=== PATIENT | male | born 1985 | race Caucasian/White ===

== ENCOUNTER 2021-12-30 18:01 | Emergency (ER) | payer MEDICAID, SELFPAY ==
[2021-12-30 18:01] VITALS: BP 130/79; PULSE 83; RESP 18; TEMP 36.3; O2SAT 96; BMI 30.7
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
[2021-12-30] MEDS: Ondansetron 4 MG/2 ML Vial IV (18:28)
[2021-12-30] MEDS: Morphine 4 MG/ML Syringe IV ×2 (18:28→19:58)
[2021-12-30 18:37] LABS: Absolute Neutrophil Count 7.9 X10^3/uL (2.0-7.7); Basophil# 0.03 X10^3/uL; Basophil% 0.3 % (0-1); Eosinophil# 0.01 X10^3/uL; Eosinophils% 0.1 % (0-5); Hematocrit 49.3 % (40-54); Hemoglobin 17.7 g/dL (13.0-16.5); Lymphocyte % 11.5 % (19-41); Mean Corp Hgb Conc 35.9 g/dL (32-36); Mean Corpuscular Hgb 29.9 pg (27.0-32.0); Mean Corpuscular Volume 83.4 fL (80-94); Mean Platelet Vol. 9.5 fl (6.2-12.0); Monocyte# 0.48 X10^3/uL; NRBC Flagged by Analyzer 0 % (0-5); Neutrophil # 7.85 X10^3/uL (2.7-7.7); Neutrophil % 82.2 % (47-70); Platelet Count 202 K/mm3 (150-450); RBC Distribution Width CV 13.2 % (11.6-14.6); Red Blood Count 5.91 M/mm3 (4.6-6.2); White Blood Count 9.6 K/mm3 (4.4-11.0)
[2021-12-30 18:53] LABS: ALB/GLOB Ratio 1.1 RATIO (0.9-2.4); AST(SGOT) 45 U/L (15-37); Alanine Aminotransfer ALT/SGPT 51 U/L (16-61); Albumin, Serum 3.8 g/dL (3.2-5.0); Alkaline Phosphatase 90 U/L (45-117); Anion Gap 4 (5-15); BUN 14 mg/dL (7-18); BUN/Creat Ratio 11.2 RATIO (10-20); Calcium,Total 9.2 mg/dL (8.5-10.1); Chloride 111 mmol/L (98-107); Creatinine, Serum 1.25 mg/dL (0.70-1.30); EST Glomerular Filtration Rate 70 mL/min (>60); Est Glom Filt Rate - Afr Amer 84 mL/min (>60); Globulin 3.5 g/dL (2.2-4.2); Glucose 136 mg/dL (74-106); Potassium 3.7 mmol/L (3.5-5.1); Protein, Total 7.3 g/dL (6.4-8.2); Sodium Level 140 mmol/L (136-145)
[2021-12-30 19:52] LABS: Bacteria 0 SEEN /hpf (None Seen); Mucous, Urine 0 SEEN /hpf (<or=2+); Red Blood Cells-Urine 0 SEEN /hpf (0-5); Squamous Epithelial Cells - UA 0 SEEN /hpf (0-5); White Blood Cells 0 SEEN /hpf (0-5)
[2021-12-30 20:33] LABS: Color, Urine Yellow (Yellow); Glucose, Dipstick Normal (Normal); Ketone-Dipstick 5 mg/dl (Negative); Leukocyte Esterase-Dipstick Negative /ul (Negative); Nitrite-Dipstick Negative (Negative); Occult Blood-Urine Negative /ul (Negative); Protein-Dipstick 15 mg/dl (Negative); Urine Bilirubin Dipstick Negative (Negative); Urine Clarity Clear (Clear); Urine Urobilinogen Normal (Normal)
[2021-12-30] MEDS: HYDROmorphone 1 MG/ML Syringe IV (20:56)
[2021-12-30 20:57] VITALS: PULSE 76; RESP 18; O2SAT 97
[2021-12-30] MEDS: Lidocaine 5% Patch 1 PATCH TOPICAL (21:34)
--- NOTE | 2021-12-30 22:10 | ED.RN ---
Pt attempted to stand up with x2 assist. Multiple attemps by pt to stand. Once pt stood pt became nauseated, diaphoretic and felt like he was going to pass out. Pt unable to take any purposeful steps. x2 assisted back to bed. Dr. Becker updated.
[2021-12-30 23:17] VITALS: BP 115/72; PULSE 81; RESP 16; O2SAT 98
[2021-12-30] MEDS: HYDROmorphone 0.5 MG/0.5 ML SYRINGE IV (23:33)
--- NOTE | 2021-12-30 23:36 | NURSING ---
CALLED PHYSICIANS ETA 2 HRS. ACCEPTED AT [facility]
[2021-12-31 01:00] VITALS: BP 133/78; PULSE 85; RESP 15; O2SAT 99
[2021-12-31] MEDS: Ondansetron 4 MG/2 ML Vial IV (01:25)
[2021-12-31] MEDS: HYDROmorphone 1 MG/ML Syringe IV (01:26)
[2021-12-31 02:03] VITALS: BP 124/78; PULSE 81; RESP 16; O2SAT 95
== END 2021-12-31 02:15 | disposition short-term general hospital (02) ==
PROVIDERS: Emergency Provider Emergency Medicine; Visit Provider Emergency Medicine
DX: M48.56XA Collapsed vertebra, not elsewhere classified, lumbar region, initial encounter for fracture (principal); S80.811A Abrasion, right lower leg, initial encounter; Z87.891 Personal history of nicotine dependence; V53.5XXA Driver of pick-up truck or van injured in collision with car, pick-up truck or van in traffic accident, initial encounter; S30.810A Abrasion of lower back and pelvis, initial encounter
CPT/HCPCS: 71260; 74177; 80053; 81001; 85025; 96374; 96375; 96376; 99285; Q9967; A4216; J2405